=== PATIENT | female | born 1970 | race Caucasian/White ===

== ENCOUNTER 2020-07-02 07:25 | Outpatient (REF) | payer OTHER, SELFPAY ==
--- NOTE | ~2020-07-02 | MM_ITS ---
EXAMINATION: MM SCREENING DIGITAL BREAST TOMOSYNTHESIS, BILATERAL CLINICAL INFORMATION: Screening. Asymptomatic. The lifetime risk of breast cancer based on the Tyrer-Cuzick Model is 9%. COMPARISON: Mammography: 06/26/2019, and prior exams dating back to 04/04/2013 TECHNIQUE: Digital breast tomosynthesis is performed in both the craniocaudal and mediolateral oblique views along with computer-aided detection (CAD). Synthesized 2D images are generated from the tomosynthesis. Additional exaggerated right CC view is provided. FINDINGS: The breasts are heterogeneously dense, which may obscure small masses (ACR BI-RADS breast composition Category c). There are no significant masses, abnormal calcifications, or other abnormalities. The right exaggerated CC view has a circumscribed nodule posterior outer quadrant 0.7 cm similar to prior studies 2014 and 2012. There is no developing density. A few punctate calcifications mid outer left breast are stable. The axilla and skin contours are unremarkable. MM/MM tomosynthesis screening BI IMPRESSION: No mammographic evidence of malignancy. ASSESSMENT: BI-RADS 2: Benign RECOMMENDATION: Routine annual mammography screening. This patient's information was entered into a reminder system with a target due date for their next mammogram.
== END 2020-07-02 07:26 | disposition home or self-care (01) ==
LOC: HO.MAMMO 07:25
PROVIDERS: Visit Provider Pediatrics
DX: Z12.31 Encounter for screening mammogram for malignant neoplasm of breast (principal)
CPT/HCPCS: 77063; 77067

== ENCOUNTER 2021-07-08 07:22 | Outpatient (REF) | payer OTHER, SELFPAY ==
--- NOTE | ~2021-07-08 | MM_ITS ---
EXAMINATION: MM SCREENING DIGITAL BREAST TOMOSYNTHESIS, BILATERAL CLINICAL INFORMATION: Screening. Asymptomatic. The lifetime risk of breast cancer based on the Tyrer-Cuzick Model is 14%. COMPARISON: Mammography: 07/02/2020, 06/26/2019, 06/19/2018 TECHNIQUE: Digital breast tomosynthesis is performed in both the craniocaudal and mediolateral oblique views along with computer-aided detection (CAD). Synthesized 2D images are generated from the tomosynthesis. Additional left MLO view is provided. FINDINGS: The breasts are heterogeneously dense, which may obscure small masses (ACR BI-RADS breast composition Category c). There are no significant masses, abnormal calcifications, or other abnormalities. Parenchymal pattern is similar to prior studies. There are no significant changes. MM/MM tomosynthesis screening BI IMPRESSION: No mammographic evidence of malignancy. ASSESSMENT: BI-RADS 1: Negative RECOMMENDATION: Routine annual mammography screening. This patient's information was entered into a reminder system with a target due date for their next mammogram.
== END 2021-07-08 07:23 | disposition home or self-care (01) ==
LOC: HO.MAMMO 07:22
PROVIDERS: PCP Internal Medicine; Visit Provider Obstetrics & Gynecology
DX: Z12.31 Encounter for screening mammogram for malignant neoplasm of breast (principal)
CPT/HCPCS: 77063; 77067

== ENCOUNTER 2021-11-10 10:28 | Outpatient (REF) | payer OTHER, SELFPAY ==
--- NOTE | ~2021-11-10 | MM_ITS ---
EXAMINATION: BONE DENSITOMETRY CLINICAL INDICATION: Encounter for screening for osteoporosis. COMPARISON: None (current study represents initial baseline exam). TECHNIQUE: Using a [employer] DXA System (software version: 13.1) manufactured by [employer], dual-energy x-ray absorptiometry was performed of the lumbar spine and left hip. The images are of good technical quality. Summary results are attached. FINDINGS: AP SPINE L1-L4: BMD 1.249 g/cm2, Z-score 1.5, T-score 0.6, normal. LEFT FEMUR, NECK: BMD 1.026 g/cm2, Z-score 1.0, T-score -0.1, normal. LEFT FEMUR, TOTAL: BMD 1.056 g/cm2, Z-score 1.1, T-score 0.4, normal. IDENTIFIED RISK FACTORS: Menopause, hysterectomy. HISTORY OF FRACTURE: None listed. MEDICATIONS: ERT/SERMS, calcium, multivitamin. MM/XR DEXA axial skeleton IMPRESSION: 1. DIAGNOSIS: Normal bone density based on the lowest T-score value of -0.1 in the femoral neck applying World Health Organization criteria. 2. 10-YEAR FRACTURE RISK PREDICTION, FRAX: According to the guidelines, FRAX calculation should only be performed on patients in the osteopenia bone density category. Therefore, FRAX was not performed on this patient. 3. Treatment Recommendations: NOF guidelines recommend consideration for treatment in postmenopausal women and men age 50 and older presenting with the following: -A hip or vertebral (clinical or morphometric) fracture. -T-score less than or equal to -2.5 at the femoral neck or spine after appropriate evaluation to exclude secondary causes. -Low bone mass at the hip or spine and a 10-year fracture probability by FRAX of greater than or equal to 3% for hip fracture or greater than or equal to 20% for major osteoporotic fracture based on the [place] adapted WHO algorithm. 4. Other Recommendations: All treatment decisions require clinical judgment and consideration of individual patient factors, including patient preferences, comorbidities, previous drug use, risk factors not captured in the FRAX model (e.g. frailty, falls, vitamin D deficiency, increased bone turnover, interval significant decline in bone density) and possible under or overestimation of fracture risk by FRAX. FUTURE SCAN RECOMMENDATION: People with diagnosed cases of osteoporosis or at high risk for fracture should have regular bone mineral density tests. For patients eligible for Medicare, routine testing is allowed once every 2 years. The testing frequency can be increased to one year for patients who have rapidly progressing disease, those who are receiving or discontinuing medical therapy to restore bone mass, or have additional risk factors.
== END 2021-11-10 10:29 | disposition home or self-care (01) ==
LOC: HO.MAMMO 10:28
PROVIDERS: PCP Internal Medicine; Visit Provider Internal Medicine
DX: Z13.820 Encounter for screening for osteoporosis (principal); M85.9 Disorder of bone density and structure, unspecified; Z78.0 Asymptomatic menopausal state; Z90.710 Acquired absence of both cervix and uterus
CPT/HCPCS: 77080

== ENCOUNTER 2022-07-19 07:27 | Outpatient (REF) | payer OTHER, SELFPAY ==
--- NOTE | ~2022-07-19 | MM_ITS ---
EXAMINATION: MM SCREENING DIGITAL BREAST TOMOSYNTHESIS, BILATERAL CLINICAL INFORMATION: Screening. Asymptomatic. The lifetime risk of breast cancer based on the Tyrer-Cuzick Model is 11%. COMPARISON: Mammography: 03/07/2022, and prior exams dating back to 05/14/2015 TECHNIQUE: Digital breast tomosynthesis is performed in both the craniocaudal and mediolateral oblique views along with computer-aided detection (CAD). Synthesized 2D images are generated from the tomosynthesis. Additional exaggerated right CC view is provided. FINDINGS: The breasts are heterogeneously dense, which may obscure small masses (ACR BI-RADS breast composition Category c). There are no significant masses, abnormal calcifications, or other abnormalities. There is a circumscribed nodule again noted posterior outer right breast on exaggerated CC. No developing density or architectural abnormality. The axilla are unremarkable. MM/MM tomosynthesis screening BI IMPRESSION: No mammographic evidence of malignancy. ASSESSMENT: BI-RADS 2: Benign RECOMMENDATION: Routine annual mammography screening. This patient's information was entered into a reminder system with a target due date for their next mammogram.
== END 2022-07-19 07:28 | disposition home or self-care (01) ==
LOC: HO.MAMMO 07:27
PROVIDERS: PCP Internal Medicine; Visit Provider Internal Medicine
DX: Z12.31 Encounter for screening mammogram for malignant neoplasm of breast (principal)
CPT/HCPCS: 77063; 77067

== ENCOUNTER 2023-07-25 07:19 | Outpatient (REF) | payer OTHER, SELFPAY | END 2023-07-25 07:20 | disposition home or self-care (01) | LOC: HO.MAMMO 07:19 | PROVIDERS: PCP Internal Medicine; Visit Provider Internal Medicine | DX: Z12.31 Encounter for screening mammogram for malignant neoplasm of breast (principal) | CPT/HCPCS: 77063; 77067 ==

== ENCOUNTER → 2023-07-25 07:30 | Outpatient (BNV) | payer OTHER, SELFPAY | PROVIDERS: PCP Internal Medicine; Visit Provider Radiology Diagnostic Radiology | DX: Z12.31 Encounter for screening mammogram for malignant neoplasm of breast (principal) | CPT/HCPCS: 77063; 77067 ==

== ENCOUNTER 2024-07-30 07:35 | Outpatient (REF) | payer OTHER, SELFPAY ==
--- OUTSIDE RECORDS SUMMARY | 2024-07-30 07:40 | XMS_ITS ---
Author Organization [facility] Address [address] [place] [address] Care Team Providers Care Log Inspector Name Role Phone REBEKAH WOODRUFF Unavailable [phone] HOWARDLUCI Fonseca Unavailable [phone] ALLERGIES No Known Allergies REASON FOR VISIT patient is here for follow on abd pain: three weeks of digestive issues, needs GI referral MEDICATIONS Medication SIG (Take, Route, Frequency, Duration) Notes Start Date End Date Status PriLOSEC OTC 20 MG 1 tablet 30 minutes before morning meal Orally Once a day for 30 days Active Albuterol Sulfate HFA 108 (90 Base) MCG/ACT 2 puffs as needed Inhalation every 6 hrs for 90 days Active traZODone HCl 50 MG TAKE 1 TABLET BY MOUTH ONCE A DAY NEEDED INSOMNIA 30 DAYS for 90 Active Omeprazole 20 MG TAKE 1 TABLET BY MOUTH EVERY DAY 30 MINUTES BEFORE MORNING MEAL for 84 as needed Active Clotrimazole 1 % 1 application Externally Twice a day for 7 day(s) 01/26/2022 Not-Taking Probiotic 250 MG 1 capsule Orally onc e daily for 30 days 04/10/2019 Active Fish Oil 1000 MG 1 capsule Orally Onc e a day Active Estrogens Conjugated 0.3 MG 1 tablet Orally Once a day Not-Taking SOCIAL HISTORY Tobacco Use: Social History Observation Description Date Details (start date - stop date) Never Smoker NA - NA Sex Assigned At : Social History Observation Description Sex Assigned At Unknown Tobacco Use/Smoking Question Answer Notes Are you a nonsmoker Section Notes: Tob: None ETOH: Weekend (2-3 drinks) Drug: None Works in school VITAL SIGNS Blood pressure systolic 122 mm Hg 03/26/20 24 Blood pressure diastolic 68 mm Hg 024 Heart Rate 74 /min 03/26/2024 Height 65 in 03/26/2024 Weight 134.8 lbs 03/26/2024 BMI 22.43 kg/m2 03/26/2024 Oximetry 96 % 03/26/2024 Encounters Encounter Location Date Provider Diagnosis [facility] [address] [place] [address] 03/26/2024 LUCI LAWRENCE Hyperlipidemia, unspecified E78.5 ; Change in bowel habit R19.4 ; Unspecified asthma, uncomplicated J45.909 and GERD without esophagitis K21.9 ASSESSMENTS Encounter Date Diagnosis Assessment Notes Treatment Notes Treatment Clinical Notes Section Notes 03/26/2024 Hyperlipidemia, unspecified (ICD-10 - E78.5) # Change in bowel habit: CT abd & pelvis r/o mass/ bowel obstruction, althought less likely due to clean colonoscopy in 2019. Continue Miralax 1-2x daily. Adequate water intake. Will obtian CBC, CMP, amylase and lipase. Check h pylori given increased eructation. #Asthma, patient was utilizing Breo, albuterol and Singulair for asthma relief. She states asthma is worse with seasonal allergies And exercise. #Gerd, Well controlled. Uses Omeprazole prn # Factor V Leiden. No hx of DVT. Case discussed with collaborating physician Kaylin Woodruff who reviewed the assessment and plan. Chart, medications, labs, vital signs reviewed. Dictation was accomplished with the use of [employer] voice recognition software, prone to medical misidentifications and grammatical errors. This is unintentional and the practitioner does try to identify and correct these, but some could still be present. Please do not hesitate to contact practitioner for clarification. All questions answered to patients satisfaction. Patient verbalized understanding of diagnosis and treatments explained. To call sooner prior to next visit it any questions/concerns arise. 03/26/2024 Change in bowel habit (ICD-10 - R19.4) # Change in bowel habit: CT abd & pelvis r/o mass/ bowel obstruction, althought less likely due to clean colonoscopy in 2019. Continue Miralax 1-2x daily. Adequate water intake. Will obtian CBC, CMP, amylase and lipase. Check h pylori given increased eructation. #Asthma, patient was utilizing Breo, albuterol and Singulair for asthma relief. She states asthma is worse with seasonal allergies And exercise. #Gerd, Well controlled. Uses Omeprazole prn # Factor V Leiden. No hx of DVT. Case discussed with collaborating physician Kaylin Woodruff who reviewed the assessment and plan. Chart, medications, labs, vital signs reviewed. Dictation was accomplished with the use of [employer] voice recognition software, prone to medical misidentifications and grammatical errors. This is unintentional and the practitioner does try to identify and correct these, but some could still be present. Please do not hesitate to contact practitioner for clarification. All questions answered to patients satisfaction. Patient verbalized understanding of diagnosis and treatments explained. To call sooner prior to next visit it any questions/concerns arise. 03/26/2024 Unspecified asthma, uncomplicated (ICD-10 - J45.909) # Change in bowel habit: CT abd & pelvis r/o mass/ bowel obstruction, althought less likely due to clean colonoscopy in 2019. Continue Miralax 1-2x daily. Adequate water intake. Will obtian CBC, CMP, amylase and lipase. Check h pylori given increased eructation. #Asthma, patient was utilizing Breo, albuterol and Singulair for asthma relief. She states asthma is worse with seasonal allergies And exercise. #Gerd, Well controlled. Uses Omeprazole prn # Factor V Leiden. No hx of DVT. Case discussed with collaborating physician Kaylin Woodruff who reviewed the assessment and plan. Chart, medications, labs, vital signs reviewed. Dictation was accomplished with the use of [employer] voice recognition software, prone to medical misidentifications and grammatical errors. This is unintentional and the practitioner does try to identify and correct these, but some could still be present. Please do not hesitate to contact practitioner for clarification. All questions answered to patients satisfaction. Patient verbalized understanding of diagnosis and treatments explained. To call sooner prior to next visit it any questions/concerns arise. 03/26/2024 GERD without esophagitis (ICD-10 - K21.9) # Change in bowel habit: CT abd & pelvis r/o mass/ bowel obstruction, althought less likely due to clean colonoscopy in 2019. Continue Miralax 1-2x daily. Adequate water intake. Will obtian CBC, CMP, amylase and lipase. Check h pylori given increased eructation. #Asthma, patient was utilizing Breo, albuterol and Singulair for asthma relief. She states asthma is worse with seasonal allergies And exercise. #Gerd, Well controlled. Uses Omeprazole prn # Factor V Leiden. No hx of DVT. Case discussed with collaborating physician Kaylin Woodruff who reviewed the assessment and plan. Chart, medications, labs, vital signs reviewed. Dictation was accomplished with the use of [employer] voice recognition software, prone to medical misidentifications and grammatical errors. This is unintentional and the practitioner does try to identify and correct these, but some could still be present. Please do not hesitate to contact practitioner for clarification. All questions answered to patients satisfaction. Patient verbalized understanding of diagnosis and treatments explained. To call sooner prior to next visit it any questions/concerns arise. PLAN OF TREATMENT Medication Medication Name Sig Start Date Stop Date Notes PriLOSEC OTC 20 MG 1 tablet 30 minutes before morning meal Orally Once a day for 30 days Albuterol Sulfate HFA 108 (9 0 Base) MCG/ACT 2 puffs as needed Inhalation every 6 hrs for 90 days Pending Test Test Name Order Date CT Abd and Pelvis w Contrast 03/26/2024 COMPREHENSIVE METABOLIC PANEL 03/26/2024 CBC (INCLUDES DIFF/PLT) 03/26/2024 LIPASE 03/26/2024 AMYLASE 03/26/2024 HELICOBACTER PYLORI, UREA BREATH TEST Next Appt Details Provider Name:LUCI LAWRENCE, 11/15/2024 08:15:00 AM, [address], [place], [address], Progress Notes * Diane GARCIADOB:[birth year] (53 yo F)Acc No.[id number]:03/26/2024 Progress Notes Patient:??Jenny GARCIA Provider:??LUCI LAWRENCE PA-C :1970?Age:53 Y?Sex:Fe male Date:03/26/2024 Address:[address] [place] [address] [place], [id number] Subjective: * Chief Complaints: * ?1. patient is here for follow on abd pain: three weeks of digestive issues, needs GI referral. * HPI: ?Constitutional:? Diane is a 53-year-old female with a past medical history of GERD, asthma, factor V Leiden, and a history of right bundle branch block. Patient presents today for abdominal discomfort. Patient reports over the past 3 weeks, she has noticed a change in her bowel habits. She reports that stools are pencil thin in nature, she seems more constipated. She denies any straining when having a bowel movement, but reports that she is taking [id number] Colace, Gavilax, and magnesium supplements which have not aided in her bowel movements. She reports that she is defecates a few gary, but then has a string-like bowel movement. She denies any blood in her stool. She had a colonoscopy in 2019 which was clean, and she got a 10-year clearance. She reports increased gas. She reports a lot of burping. She denies any weight loss, or night sweats. She denies any new supplements, or changes of her diet. * ROS:?Constitutional: Patient denies any excessive fatigue with exercise, no weight loss, no fever and no night sweats, ???Eyes: No ee discharge, no itching, no redness. ???Ear nose throat: No sore throat, postnasal drip, runny nose, Sneezing ???Cardiovascular: No chest pain, no shortness of breath, no dyspnea on exertion, no PND, no orthopnea, + irregular pulse ???Respiratory: No chronic cough, no hemoptysis, no sputum, no wheezing ???GI, no diarrhea, + constipation no blood in the stools, no pain associated with eating, endorses indigestion/epigastric pain genitourinary: No painful urination no hesitancy no blood in the urine ???Musculoskeletal, no limitations to walking and running, no joint deformity, no joint stiffness, no chronic back pain, no noise with joint movement ???Integumentary, no new skin rash. No new changes in skin moles ???Neurological: No history of seizures, memory loss, No language dysfunction, No inability to concentrate, no localized weakness, no sensation loss, no confusion ???Psychiatric: No depression, no suicidal thoughts, no anxiety ???Endocrine: No polyuria no polyphagia or polydipsia, no heat intolerance no cold intolerance ???Hematological: No easy bruising or Lymph node swelling. * Medical History:??GERD (ralf roesophageal reflux disease), Asthma, Factor V Leiden, Unspecified right bundle-branch block. * Surgical History:??Hysterect shae 2017. * Hospitalization/Major Diagno stic Procedure:??Hysterectomy 2017. * Family History:??Father: dec eased 84 yrs.??Mother: .??1 sister(s) . 2 daughter(s) . .?? Dad: CVA. * Social History:?Tobacco Use:??Tobacco Use/Smoking??Are you a??nonsmoker.?Tob: None ???ETOH: Weekend (2-3 drinks) ???Drug: None ???Works in school. * Medications:??Taking Fish Oi l 1000 MG Capsule 1 capsule Orally Once a day , Taking Probiotic 250 MG Capsule 1 capsule Orally once daily , Taking Omeprazole 20 MG Tablet Delayed Release TAKE 1 TABLET BY MOUTH EVERY DAY 30 MINUTES BEFORE MORNING MEAL , Notes to Pharmacist: as needed, Taking PriLOSEC OTC 20 MG Tablet Delayed Release 1 tablet 30 minutes before morning meal Orally Once a day , Taking Albuterol Sulfate HFA 108 (90 Base) MCG/ACT Aerosol Solution 2 puffs as needed Inhalation every 6 hrs , Taking traZODone HCl 50 MG Tablet TAKE 1 TABLET BY MOUTH ONCE A DAY NEEDED INSOMNIA 30 DAYS , Not-Taking Estrogens Conjugated 0.3 MG Tablet 1 tablet Orally Once a day , Not-Taking Clotrimazole 1 % Cream 1 application Externally Twice a day , Medication List reviewed and reconciled with the patient * Allergies:??N.K.D.A. Objective: * Vitals:??HR:74/min, BP:122/6 8mm Hg, Wt:134.8lbs, BMI:22.43Index, Ht: 65 in, Oxygen sat %:96%. * Examination: ?General Examination: ?General: Well appearing, well nourished, age appropriate in no acute distress. Speaking in full, clear sentences. ?SKIN: Warm, dry intact. No rashes/lesions. ?HEENT: Normocephalic atraumatic. EOM intact. No nystagmus noted. PERRLA. No fluid behind TM. ?LUNGS: Clear to auscultation bilaterally, no wheezes, rales or rhonchi ?CARDIAC: Regular rate and rhythm, no murmurs, rubs or gallops. No discrepaince with radial palpation ?Abdomen: Soft, nontender, nondistended. No tenderness if all 4 quadrants. Normoactive bowel sounds. No masses palpable. ?Extremities: Warm and well perfused. No edema noted. ?Neuro: CN II-XI grossly intact. Speaking in full sentences. Hearing intact. Assessment: * Assessment: 1.??Change in bowel habit - R19.4 (Primary)??2.??Hyperlipidemia, unspecified - E78.5??3.??Unspecified asthma, uncomplicated - J45.909??4.??GERD without esophagitis - K21.9?? # Change in bowel habit: CT abd & pelvis r/o mass/ bowel obstruction, althought less likely due to clean colonoscopy in 2019. Continue Miralax 1-2x daily. Adequate water intake. Will obtian CBC, CMP, amylase and lipase. Check h pylori given increased eructation. #Asthma, patient was utilizing Breo, albuterol and Singulair for asthma relief. She states asthma is worse with seasonal allergies And exercise. #Gerd, Well controlled. Uses Omeprazole prn # Factor V Leiden. No hx of DVT. Case discussed with collaborating physician Kaylin Woodruff who reviewed the assessment and plan. Chart, medications, labs, vital signs reviewed. Dictation was accomplished with the use of [employer] voice recognition software, prone to medical misidentifications and grammatical errors. This is unintentional and the practitioner does try to identify and correct these, but some could still be present. Please do not hesitate to contact practitioner for clarification. All questions answered to patients satisfaction. Patient verbalized understanding of diagnosis and treatments explained. To call sooner prior to next visit it any questions/concerns arise. Plan: * Treatment: 2.??GERD without esophagitis?? Start PriLOSEC OTC Tablet Delayed Release, 20 MG, 1 tablet 30 minutes before morning meal, Orally, Once a day, 30 days, 30, Refills 0.?3.??Others?? Refill Albuterol Sulfate HFA Aerosol Solution, 108 (90 Base) MCG/ACT, 2 puffs as needed, Inhalation, every 6 hrs, 90 days, 3, Refills 1.? * Images: Billing Information: * Visit Code:?? 32254 Office Visit, Est Pt., Level 4. * Procedure Codes:?? Care Plan Details* * Sign off status: Completed true * Provider:??LUCI LAWRENCE PA-C Date:??03/2024 History and Physical Notes * HPI (History of Present Illness) Category Sub-Category Detail Notes Category Not es Constitutional Diane is a 53 -year-old female with a past medical history of GERD, asthma, factor V Leiden, and a history of right bundle branch block. Patient presents today for abdominal discomfort. Patient reports over the past 3 weeks, she has noticed a change in her bowel habits. She reports that stools are pencil thin in nature, she seems more constipated. She denies any straining when having a bowel movement, but reports that she is taking [id number] Colace, Gavilax, and magnesium supplements which have not aided in her bowel movements. She reports that she is defecates a few gary, but then has a string-like bowel movement. She denies any blood in her stool. She had a colonoscopy in 2019 which was clean, and she got a 10-year clearance. She reports increased gas. She reports a lot of burping. She denies any weight loss, or night sweats. She denies any new supplements, or changes of her diet. Examination Category Sub-Category Detail Notes Category Not es General Examination General: Well appearing, well nourished, age appropriate in no acute distress. Speaking in full, clear sentences. SKIN: Warm, dry intact. No rashes/lesions. HEENT: Normocephalic atraumatic. EOM intact. No nystagmus noted. PERRLA. No fluid behind TM. LUNGS: Clear to auscultation bilaterally, no wheezes, rales or rhonchi CARDIAC: Regular rate and rhythm, no murmurs, rubs or gallops. No discrepaince with radial palpation Abdomen: Soft, nontender, nondistended. No tenderness if all 4 quadrants. Normoactive bowel sounds. No masses palpable. Extremities: Warm and well perfused. No edema noted. Neuro: CN II-XI grossly intact. Speaking in full sentences. Hearing intact.
--- OUTSIDE RECORDS SUMMARY | 2024-07-30 07:40 | XMS_ITS ---
Author Organization [employer] [facility] Address [address] [place] [address] Care Team Providers Care Director Reactor Projects Name Role Phone REBEKAH ALBRECHT Unavailable [phone] LUCI LAWRENCE Unavailable [phone] Encounters Encounter Location Date Provider Diagnosis [facility] [address] [facility] [place] [id number] 05/22/2024 LUCI LAWRENCE PLAN OF TREATMENT Next Appt Details Provider Name:LUCI LAWRENCE, 11/15/2024 08:15:00 AM, [address], [facility] [place], [address], Progress Notes * PETE SUGGS JennymargeDOB:[birth year] (54 yo F)Acc No.[id number]:05/22/2024 Progress Notes Patient:??Jenny MORRISSEY Provider:??LUCI LAWRENCE PA-C :1970?Age:54 Y?Sex:Fe male Date:05/22/2024 Address:[id number] Subjective: * Chief Complaints: * ? * Medical History:?? Objective: Assessment: Plan: * Treatment: * Images: Billing Information: * Visit Code:?? * Procedure Codes:?? Care Plan Details* * Sign off status: Pending * Provider:??LUCI LAWRENCE PA-C Date:??11/2024
--- OUTSIDE RECORDS SUMMARY | 2024-07-30 07:40 | XMS_ITS ---
Author Organization [facility] Address [address] [place] [address] Care Team Providers Care Civil Engineering Drafter Name Role Phone REBEKAH ALBRECHT Unavailable [phone] LUCI LAWRENCE Unavailable [phone] results Encounters Encounter Location Date Provider Diagnosis [facility] [address] [place] [phone] 04/16/2024 LUCI LAWRENCE PLAN OF TREATMENT Next Appt Details Provider Name:LUCI LAWRENCE, 11/15/2024 08:15:00 AM, [address], [place], [address], Progress Notes * Diane MORRISSEYDOB:[birth year] (54 yo F)Acc No.[id number]:04/16/2024 Patient:??KEVYNJenny THOMASON marge :1970?Age:54 Y?Sex:Fe male Address:[place] [address] * true * Date:??
== END 2024-07-30 07:36 | disposition home or self-care (01) ==
LOC: HO.MAMMO 07:35
PROVIDERS: PCP Internal Medicine; Visit Provider Internal Medicine
DX: Z12.31 Encounter for screening mammogram for malignant neoplasm of breast (principal)
CPT/HCPCS: 77063; 77067

== ENCOUNTER → 2024-07-30 07:45 | Outpatient (BNV) | payer OTHER, SELFPAY | PROVIDERS: PCP Internal Medicine; Visit Provider Internal Medicine | DX: Z12.31 Encounter for screening mammogram for malignant neoplasm of breast (principal) | CPT/HCPCS: 77063; 77067 ==